=== PATIENT | male | born 1990 | race African-American/Black ===

== ENCOUNTER 2017-03-15 19:29 | Emergency (ER) | payer SELFPAY ==
[2017-03-15 19:53] VITALS: BP 142/82; PULSE 65; TEMP 97.8; BMI 22.4
--- NOTE | 2017-03-15 22:26 | PDOC ---
History of Present Illness - General Chief Complaint: Itching Stated Complaint: RASH Time Seen by Provider: 03/15/17 21:19 History Source: Patient Exam Limitations: No Limitations - History of Present Illness Initial Comments: 03/15/17 22:19 Chief complaint: Itchiness to scrotum History of present illness: Patient is a 26-year-old male with no significant medical history here today complaining of itchiness to his scrotum that started approximately 4 days ago. Patient denies any penile discharge or any tenderness of his testicles. Patient denies any other symptoms. 03/15/17 22:26 Timing/Duration: getting worse Severity: mild Associated Symptoms: reports: other (itchiness to scrotom) Past History - Past Medical History Allergies/Adverse Reactions: Allergies Allergy/AdvReac Type Severity Reaction Status Date / Time No Known Allergies Allergy Verified 03/15/17 19:52 Home Medications: Ambulatory Orders Clotrimazole [Lotrimin -] 1 applic TP BID #1 tube MDD 2 03/15/17 Other medical history: Pt denies - Surgical History Abdominal Surgery: Yes (Colon resection) - Immunization History Immunization Up to Date: Yes - Psycho/Social/Smoking Cessation Hx Anxiety: No Suicidal Ideation: No Smoking History: Never smoked Number of Cigarettes Smoked Daily: 0 Cigars Per Day: 0 Information on smoking cessation initiated: No Hx Alcohol Use: No Drug/Substance Use Hx: No Substance Use Type: None Review of Systems - Review of Systems Able to Perform ROS?: Yes Constitutional: No: Symptoms Reported HEENTM: No: Symptoms Reported Respiratory: No: Symptoms reported Cardiac (ROS): No: Symptoms Reported ABD/GI: No: Symptoms Reported : No: Symptoms Reported Musculoskeletal: No: Symptoms Reported Integumentary: Yes: Pruritus (scrotum), Rash (area of hypopigmentation scrotal area, rt. groin) *Physical Exam - Vital Signs Last Vital Signs Temp Pulse Resp BP Pulse Ox 97.8 F 65 18 142/82 98 03/15/17 19:50 03/15/17 19:50 03/15/17 19:50 03/15/17 19:50 03/15/17 19:50 - Physical Exam General Appearance: Yes: Appropriately Dressed Respiratory/Chest: positive: Lungs Clear, Normal Breath Sounds. negative: Chest Tender, Respiratory Distress Cardiovascular: positive: Regular Rhythm, Regular Rate, S1, S2 Male Genitalia: positive: normal genitalia, other (few areas of hypopigmentation scrotum, rt. groin slightly scaley, circumcized). negative: discharge, testicular tenderness, testicular mass, epididymus tender, inguinal hernia, hernia Integumentary: positive: Rash (few areas of hypopigmentation scrotum, rt. groin slightly scaley) Medical Decision Making - Medical Decision Making 03/15/17 22:23 Patient is a 26-year-old male with no significant medical history here today complaining of itchiness to his scrotum that started approximately 4 days ago. Patient denies any penile discharge or any tenderness of his testicles. Patient denies any other symptoms. 03/15/17 22:26 Tinea cruris Plan: Chlortrimazole cream applied to itchy area twice a day until resolved *DC/Admit/Observation/Transfer Diagnosis at time of Disposition: Tinea cruris - Discharge Dispostion Disposition: HOME Condition at time of disposition: Stable - Patient Instructions Additional Instructions: Wash skin thoroughly with antibacterial soap and water pat dry allowed to dry well then apply cream ordered today Follow Up with your primary care provider within the next few days Return to emergency room if any new symptoms develop
== END 2017-03-15 22:48 | disposition home or self-care (01) ==
LOC: JER 19:29
DX: B35.6 Tinea cruris (principal)
CPT/HCPCS: 99281-25

== ENCOUNTER 2019-01-24 11:32 | Emergency (ER) | payer SELFPAY ==
[2019-01-24 11:45] VITALS: BP 132/63; PULSE 90; TEMP 98.7; BMI 25.8
--- NOTE | 2019-01-24 12:01 | PDOC ---
History of Present Illness - General Chief Complaint: Eye Problem Stated Complaint: RT EYE INJURY Time Seen by Provider: 01/24/19 11:45 History Source: Patient Exam Limitations: No Limitations Past History - Travel Traveled outside of the country in the last 30 days: No Close contact w/someone who was outside of country & ill: No - Past Medical History Allergies/Adverse Reactions: Allergies Allergy/AdvReac Type Severity Reaction Status Date / Time No Known Allergies Allergy Verified 01/24/19 11:52 Home Medications: Ambulatory Orders Cephalexin Monohydrate [Keflex -] 500 mg PO BID #14 capsule 01/24/19 Erythromycin 0.5% Eye Ointment [Erythromycin 0.5% Eye Ointment -] 1 applic OU BID #1 tube 01/24/19 - Surgical History Abdominal Surgery: Yes (Colon resection) - Immunization History Immunization Up to Date: Yes - Suicide/Smoking/Psychosocial Hx Smoking History: Never smoked Have you smoked in the past 12 months: No Number of Cigarettes Smoked Daily: 0 Cigars Per Day: 0 Information on smoking cessation initiated: No Hx Alcohol Use: No Drug/Substance Use Hx: No Substance Use Type: None Review of Systems - Review of Systems Able to Perform ROS?: Yes Comments:: 01/24/19 12:00 CONSTITUTIONAL: Absent: fever, chills, diaphoresis, generalized weakness, malaise, loss of appetite HEENT: Present: stye to R and L eye. Absent: rhinorrhea, nasal congestion, throat pain , throat swelling, difficulty swallowing, mouth swelling, ear pain, eye pain, visual Changes Absent: rash, itching, pallor NEUROLOGIC: Absent: headache, focal weakness or paresthesias, dizziness, unsteady gait, seizure, mental status changes, bladder or bowel incontinence PSYCHIATRIC: Absent: anxiety, depression, suicidal or homicidal ideation, hallucinations. Is the patient limited Bulgarian proficient: No *Physical Exam - Vital Signs Last Vital Signs Temp Pulse Resp BP Pulse Ox 98.7 F 90 18 132/63 98 01/24/19 11:42 01/24/19 11:42 01/24/19 11:42 01/24/19 11:42 01/24/19 11:42 - Physical Exam Comments: 01/24/19 12:00 GENERAL: The patient is awake, alert, and fully oriented, in no acute distress. HEAD: Normal with no signs of trauma. EYES: Pupils equal, round and reactive to light, extraocular movements intact, sclera anicteric, conjunctiva clear. Visual acuity; 20/25 OS, 20/20 OD, 20/20 OU , uncorrected. Stye present to the R lower mid lid and L upper lateral lid. No drainage noted. EXTREMITIES: Normal range of motion, no edema. NEUROLOGICAL: Normal speech, normal gait. PSYCH: Normal mood, normal affect. SKIN: Warm, Dry, normal turgor, no rashes or lesions noted. Medical Decision Making - Medical Decision Making 01/24/19 13:19 The patient is a 28-year-old male with no past medical history who presents to the ER today for a stye to his right lower eyelid is time to his left upper eye. Patient states that given the stye his left upper eye for approximately 3 weeks that has not gone away. He states that today he noticed a stye to his right lower eye as well. He is tried warm water compresses with little relief of the symptoms. Denies visual changes, blurry vision, floaters, spots, lightheadedness and dizziness. A/P: Hordeolum Patient with hordeolum to both his right lower lid and left upper lid. Right lower lid hordeolum is erythematous and slightly grain broker appearance We will give erythromycin ointment as well as Keflex Discharge home to follow up with ophthalmology. I discussed the physical exam findings, ancillary test results and final diagnoses with the patient. I answered all of the patient's questions. The patient was satisfied with the care received and felt comfortable with the discharge plan and treatment plan. The Patient agrees to follow up with the primary care physician/specialist within 24-72 hours. Return precautions were given. *DC/Admit/Observation/Transfer Diagnosis at time of Disposition: Stye external Qualifiers: Laterality: right Eyelid: lower Qualified Code(s): H00.012 - Hordeolum externum right lower eyelid - Discharge Dispostion Disposition: HOME Condition at time of disposition: Stable Decision to Admit order: No - Prescriptions Prescriptions: Cephalexin Monohydrate [Keflex -] 500 mg PO BID #14 capsule Erythromycin 0.5% Eye Ointment [Erythromycin 0.5% Eye Ointment -] 1 applic OU BID #1 tube - Referrals Referrals: Star Johnson MD [Primary Care Provider] - - Patient Instructions Printed Discharge Instructions: DI for Hordeolum Additional Instructions: You were evaluated for the styes on your eye Please use warm water compresses to the area Use the Erythromycin ointment three times daily to both eyes Take the keflex twice daily Follow up with ophthalmology on Saturday. A referral has been provided to you Return to the ED for any new or worsening symptoms - Post Discharge Activity
== END 2019-01-24 12:16 | disposition home or self-care (01) ==
LOC: JERFT 11:32 → JER 11:32 → JERFT 12:16
DX: H00.012 Hordeolum externum right lower eyelid (principal)
CPT/HCPCS: 99281-25

== ENCOUNTER 2022-05-13 05:00 | Emergency (ER) | payer SELFPAY ==
[2022-05-13 05:59] VITALS: BP 140/83; PULSE 88; RESP 18; TEMP 98.6; BMI 22.6
[2022-05-13 06:02] LABS: BASO % 0.8 % (0-2.0); EOS % 0.4 % (0-4.5); HEMATOCRIT 39.3 % (35.4-49); HEMOGLOBIN 13.2 GM/dL (11.7-16.9); LYMPH % 24.8 % (8-40); MCH 31.2 pg (25.7-33.7); MCHC 33.7 g/dl (32.0-35.9); MEAN CELL VOLUME 92.5 fl (80-96); MEAN PLT VOLUME 8.2 fl (7.5-11.1); MONO % 9.8 % (3.8-10.2); NEUT % 64.2 % (42.8-82.8); PLATELET COUNT 326 10^3/uL (134-434); RBC 4.25 M/mm3 (4.00-5.60); RDW 12.4 % (11.9-15.9); WHITE BLOOD COUNT 6.9 K/mm3 (4.0-10.0)
[2022-05-13 06:14] LABS: INR 1.13 (0.83-1.09)
[2022-05-13 06:16] LABS: ACTIVATED PTT 27.6 SECONDS (25.2-36.5)
[2022-05-13 06:25] LABS: BLOOD UREA NITROGEN 13.2 mg/dL (7-18); CALCIUM 8.8 mg/dL (8.5-10.1)
[2022-05-13 06:28] LABS: CREATININE 1.3 mg/dL (0.55-1.3)
[2022-05-13 06:30] LABS: BILIRUBIN,TOTAL 0.6 mg/dL (0.2-1); TOT PROT 7.7 g/dl (6.4-8.2)
[2022-05-13] MEDS ORDERED: DIPHTH,PERTUSS(ACELL),TET 0.5 ML DISP.SYRIN IM ONE ×2 (06:34→06:37)
[2022-05-13] MEDS ORDERED: BACITRACIN 0.9 GM PACKET TP ONE ×2 (07:21→07:23)
[2022-05-13] MEDS ORDERED: BACITRACIN 15 GM TUBE TOPICAL OINTMENT ONE (07:21)
== END 2022-05-13 09:05 | disposition left against medical advice (07) ==
LOC: JER 05:00
PROC: 0HQ0XZZ Repair Scalp Skin, External Approach (ICD-10-PCS; principal; 2022-05-13)
PROC: 0CQ1XZZ Repair Lower Lip, External Approach (ICD-10-PCS; 2022-05-13)
PROC: 08QRXZZ Repair Left Lower Eyelid, External Approach (ICD-10-PCS; 2022-05-13)
PROC: 3E0234Z Introduction of Serum, Toxoid and Vaccine into Muscle, Percutaneous Approach (ICD-10-PCS; 2022-05-13)
DX: S06.0X9A Concussion with loss of consciousness of unspecified duration, initial encounter (principal); S21.239A Puncture wound without foreign body of unspecified back wall of thorax without penetration into thoracic cavity, initial encounter; S61.214A Laceration without foreign body of right ring finger without damage to nail, initial encounter; S01.81XA Laceration without foreign body of other part of head, initial encounter; S01.511A Laceration without foreign body of lip, initial encounter; S01.112A Laceration without foreign body of left eyelid and periocular area, initial encounter; Y04.0XXA Assault by unarmed brawl or fight, initial encounter
CPT/HCPCS: 36415; 70450-TC; 70486-TC; 71260-TC; 72125-TC; 74177-TC; 80053; 85025; 85610; 85730; 86850; 86900; 86901; 90715; 99285-25; Q9967